=== PATIENT | female | born 2005 | race Caucasian/White ===

== ENCOUNTER 2024-08-09 13:58 | Emergency (ER) | payer OTHER ==
[2024-08-09 15:14] LABS: Anion Gap 13 mmol/L (10-20); BUN (Urea Nitrogen) 13 mg/dL (8.4-21.0); Calc. Creatinine Clearance 0 mL/min (70-130); Calcium 9.3 mg/dL (7.8-10.44); Carbon Dioxide 24 mmol/L (22-29); Chloride 106 mmol/L (98-107); Estimated GFR 91; Glucose 101 mg/dL (70-105); Magnesium 1.7 mg/dL (1.7-2.2); Potassium 3.6 mmol/L (3.5-5.1); Sodium 139 mmol/L (136-145)
[2024-08-09] MEDS ORDERED: hydrOXYzine 25 MG TAB ONE (17:21)
[2024-08-09] MEDS ORDERED: Lorazepam 1 MG TAB ONE (18:19)
== END 2024-08-09 16:24 | disposition home or self-care (01) ==
LOC: CSHERS 13:58
DX: F41.0 Panic disorder [episodic paroxysmal anxiety] (principal)
CPT/HCPCS: 80048; 83735

== ENCOUNTER 2024-08-09 16:33 | Emergency (ER) | payer OTHER ==
[2024-08-09 17:41] LABS: #Basophils 0.03 10x3/uL (0.0-0.2); #Eosinophils 0.06 10x3/uL (0.0-0.5); #Monocytes 0.54 10x3/uL (0.0-1.1); #Neutrophils 2.64 10x3/uL (1.5-8.4); %Basophils 0.6 % (0.0-2.0); %Eosinophils 1.1 % (0.0-6.0); %Lymphocytes 39.4 % (18.0-47.0); %Neutrophils 48.7 % (40.0-75.0); Hematocrit 38.9 % (34.9-44.5); Hemoglobin 13.2 g/dL (12.0-15.5); Mean Corpuscular HGB CONC 33.9 g/dL (32.0-36.0); Mean Corpuscular Hemoglobin 28.2 pg (27.0-33.0); Mean Corpuscular Volume 83.1 fL (81.6-98.3); Mean Platelet Volume 9.7 fL (7.4-10.4); Platelet Count 176 10x3/uL (150-450); RBC Distribution Width 14.2 % (11.5-14.5); Red Blood Cell (RBC) Count 4.68 10x6/uL (3.90-5.03); White Blood Cell (WBC) Count 5.4 10x3/uL (3.5-10.5)
[2024-08-09 18:04] LABS: Troponin I Less than 0.010 ng/mL (< 0.028)
== END 2024-08-09 18:17 | disposition home or self-care (01) ==
LOC: CSHERS 16:33
DX: R07.89 Other chest pain (principal); R20.2 Paresthesia of skin
CPT/HCPCS: 84484; 85025; 93005; 99285